=== PATIENT | male | born 1995 | race Two or more races ===

== ENCOUNTER 2018-01-05 08:27 | Emergency (ER) | payer OTHER ==
[~2018-01-05] VITALS: Ht 170.2 cm; Wt 59.4 kg
[2018-01-05 08:32] VITALS: BP 140/87
== END 2018-01-05 09:13 | disposition home or self-care (01) ==
LOC: ER 08:27
DX: S50.361A Insect bite (nonvenomous) of right elbow, initial encounter (principal); F12.10 Cannabis abuse, uncomplicated; Z88.0 Allergy status to penicillin; W57.XXXA Bitten or stung by nonvenomous insect and other nonvenomous arthropods, initial encounter; Y93.89 Activity, other specified; Y99.8 Other external cause status; Y92.89 Other specified places as the place of occurrence of the external cause

== ENCOUNTER 2019-09-06 10:00 | Emergency (ER) | payer MEDICAID ==
[~2019-09-06] VITALS: Ht 170.2 cm; Wt 70.3 kg
[2019-09-06 10:18] VITALS: BP 107/62
[2019-09-06] MEDS ORDERED: KETOROLAC TROMETH 60MG/2ML VIAL IM ONE (10:45)
[2019-09-06] MEDS ORDERED: METHOCARBAMOL 500 MG TAB PO ONE (10:45)
[2019-09-06 11:17] LABS: Basophils # (auto) 0.1 10 ^3/uL (0-0.2); Eosinophils # (auto) 0.1 10 ^3/uL (0-0.8); Eosinophils % (auto) 1.3 % (0.0-7.0); Hematocrit 44.6 % (41.0-53.0); Hemoglobin 14.9 g/dL (13.5-17.5); Lymphocytes # (auto) 2.6 10 ^3/uL (0.4-5.4); Lymphocytes % (auto) 30.7 % (10.0-50.0); Mean Corpuscular Hemoglobin 29.2 pg (28.0-32.0); Mean Corpuscular Hgb Conc. 33.4 g/dL (32.0-36.0); Mean Corpuscular Volume 87.6 fL (80.0-100.0); Monocytes # (auto) 0.5 10 ^3/uL (0-1.3); Neutrophils # (auto) 5.2 10 ^3/uL (1.6-8.6); Nucleated Red Blood Cells % 0.1 %; Platelet Count (auto) 220 10^3/uL (140-450); Red Blood Cells 5.09 10^6/uL (4.5-5.90); Red Cell Distribution Width 13.2 % (11.8-14.3); White Blood Cell 8.5 10^3/uL (4.4-10.8)
[2019-09-06 11:28] LABS: Anion Gap 7 (5-15); Blood Urea Nitrogen 10 mg/dL (7-18); Calcium 8.6 mg/dL (8.5-10.1); Carbon Dioxide 24 mmol/L (21-32); Chloride 106 mmol/L (98-107); Glucose 102 mg/dL (74-106); Potassium 3.4 mmol/L (3.5-5.1); Sodium 137 mmol/L (136-145)
[2019-09-06 11:33] LABS: Alanine Aminotransferase 31 U/L (16-61); Alkaline Phosphatase 59 U/L (45-117); Aspartate Aminotransferase 17 U/L (15-37); BUN/Creatinine Ratio 10.6; Bilirubin, Total 0.8 mg/dL (0.2-1.0); GFR African American 125 mL/min; GFR Non-African American 103 mL/min; Total Protein 7.6 g/dL (6.4-8.2)
== END 2019-09-06 12:02 | disposition home or self-care (01) ==
LOC: ER 10:00
DX: S29.011A Strain of muscle and tendon of front wall of thorax, initial encounter (principal); X50.9XXA Other and unspecified overexertion or strenuous movements or postures, initial encounter; Y93.89 Activity, other specified; Y92.89 Other specified places as the place of occurrence of the external cause; Y99.8 Other external cause status
CPT/HCPCS: 36415; 71046; 80053; 82962; 84484; 85025; 93005; 96372; 99285; J1885

== ENCOUNTER 2022-08-24 09:12 | Emergency (ER) | payer MEDICAID ==
[~2022-08-24] VITALS: Ht 170.2 cm; Wt 63.0 kg
[2022-08-24] MEDS ORDERED: IOHEXOL 300 MG/ML 100ML BOTTLE IJ ONE (09:29)
[2022-08-24] MEDS ORDERED: KETOROLAC TROMETH 30 MG/ML 1ML VIAL IV ONE (10:30)
[2022-08-24] MEDS ORDERED: HYDROcodone-ACET 5/325MG TAB PO ONE (10:30)
[2022-08-24 12:00] VITALS: BP 118/81
== END 2022-08-24 12:32 | disposition home or self-care (01) ==
LOC: ER 09:12
DX: R07.81 Pleurodynia (principal); F12.10 Cannabis abuse, uncomplicated; Z88.0 Allergy status to penicillin; W18.39XA Other fall on same level, initial encounter; Y93.89 Activity, other specified; Y92.89 Other specified places as the place of occurrence of the external cause; Y99.8 Other external cause status
CPT/HCPCS: 71260; 74177; 96374; 99285; J1885; Q9967

== ENCOUNTER 2024-03-08 10:50 | Emergency (ER) | payer MEDICAID ==
[~2024-03-08] VITALS: Ht 170.2 cm; Wt 56.3 kg
[2024-03-08 12:22] LABS: Urine Bacteria None Seen /hpf (None Seen)
[2024-03-08 12:47] LABS: Urine Blood Negative /uL (Negative); Urine Clarity Clear (Clear); Urine Color Light-Yellow (Yellow); Urine Protein, UAD Negative (Negative); Urine Specific Gravity 1.009 (1.001-1.035); Urine Urobilinogen Normal (Negative); Urine WBC <1 /hpf (0 - 3); Urine pH 5.5 (5.0-9.0)
[2024-03-08 13:00] VITALS: BP 142/83; PULSE 83; RESP 16; TEMP 98.5; O2SAT 97
== END 2024-03-08 13:20 | disposition home or self-care (01) ==
LOC: ER 10:50
DX: R07.89 Other chest pain (principal); F15.90 Other stimulant use, unspecified, uncomplicated; Z88.0 Allergy status to penicillin
CPT/HCPCS: 71046; 81001; 93005